=== PATIENT | male | born 1975 ===

== ENCOUNTER 2021-06-30 12:15 | Inpatient (IN) | payer OTHER ==
[~2021-06-30] VITALS: Ht 177.8 cm; Wt 103.0 kg
[2021-06-30] MEDS ORDERED: TOPROL XL100 M1 PO (16:10)
[2021-06-30] MEDS ORDERED: LOSARTAN-HCTZ1 EAC2 PO (16:11)
[2021-06-30] MEDS ORDERED: PROCARDIA PO (16:11)
== END 2021-07-08 19:11 | disposition home or self-care (01) | DRG 330 ==
LOC: SURH 07-06 05:40 → O/R 07-06 05:40 → SURH 07-06 11:00
PROVIDERS: ADMIT Colon & Rectal Surgery; ATTEND Colon & Rectal Surgery
PROC: 0TU Urinary System, Supplement (ICD-10-PCS; 2021-07-06)
PROC: 0DUU47Z Supplement Omentum with Autologous Tissue Substitute, Percutaneous Endoscopic Approach (ICD-10-PCS; 2021-07-06)
PROC: 0DTE4ZZ Resection of Large Intestine, Percutaneous Endoscopic Approach (ICD-10-PCS; principal; 2021-07-06 11:00)
DX: K57.20 Diverticulitis of large intestine with perforation and abscess without bleeding (principal); N32.1 Vesicointestinal fistula; K92.1 Melena; N99.71 Accidental puncture and laceration of a genitourinary system organ or structure during a genitourinary system procedure